=== PATIENT | female | born 1960 | race Caucasian/White ===

== ENCOUNTER 2016-07-14 09:09 | Emergency (ER) | payer OTHER ==
[~2016-07-14] VITALS: Ht 162.6 cm; Wt 68.0 kg
[2016-07-14 09:10] VITALS: BP 145/84
[2016-07-14] MEDS ORDERED: AMLODIPINE BESYL5 M1 PO (09:55)
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
== END 2016-07-14 10:56 ==
LOC: ERH 09:09
DX: S16.1XXA Strain of muscle, fascia and tendon at neck level, initial encounter (principal); S06.0X0A Concussion without loss of consciousness, initial encounter; S09.90XA Unspecified injury of head, initial encounter; V89.2XXA Person injured in unspecified motor-vehicle accident, traffic, initial encounter